=== PATIENT | male | born 1990 | race Two or more races ===

== ENCOUNTER 2018-11-03 16:19 | Outpatient (CLI) | payer OTHER ==
[2018-11-04] MEDS ORDERED: KEFLEX500 MG PO (16:54)
== END 2018-11-03 16:29 | disposition home or self-care (01) ==
LOC: RAD 16:19
DX: M10.072 Idiopathic gout, left ankle and foot (principal); L03.116 Cellulitis of left lower limb

== ENCOUNTER → 2018-11-04 | Emergency (ER) | payer OTHER ==
[~2018-11-04] VITALS: Ht 172.7 cm; Wt 87.5 kg
[~2018-11-04] MED LIST: KEFLEX500 MG PO
== END | disposition left against medical advice (07) ==
LOC: ER 16:35
DX: M79.89 Other specified soft tissue disorders (principal)

== ENCOUNTER → 2019-08-27 | Outpatient (CLI) | payer OTHER | END | disposition home or self-care (01) | LOC: RAD 18:23 | DX: M25.562 Pain in left knee (principal); M25.561 Pain in right knee ==

== ENCOUNTER 2019-11-12 14:28 | Emergency (ER) | payer OTHER ==
[~2019-11-12] VITALS: Ht 172.7 cm; Wt 71.7 kg
[2019-11-12] MEDS ORDERED: DISCOVISC DISP S1 ML IO (14:38)
== END 2019-11-13 01:21 | disposition designated cancer center or children's hospital (05) ==
LOC: ER 14:28
DX: T14.91 Suicide attempt (principal); T50.992A Poisoning by other drugs, medicaments and biological substances, intentional self-harm, initial encounter; R53.81 Other malaise; Y92.89 Other specified places as the place of occurrence of the external cause; Y93.89 Activity, other specified; Y99.8 Other external cause status